=== PATIENT | female | born 1970 | race American Indian/Alaskan Native ===

== ENCOUNTER 2016-11-06 16:13 | Emergency (ER) | payer OTHER ==
--- NOTE | 2016-11-06 21:16 | Emergency Department Report ---
ED Extremity Problem HPI - General Chief complaint: Extremity Injury, Lower Stated complaint: SWOLLEN LEFT LEG Time Seen by Provider: 11/06/16 21:01 Source: patient, family Mode of arrival: Ambulatory Limitations: No Limitations - History of Present Illness Initial comments: Patient complaining of left leg swelling. She states that she fell while she was visiting [place] on vacation 2 weeks ago and she injured her leg. She states she did not seek any medical treatment now she is complaining of pain from her left upper leg to her ankle. Reports swelling and bruising to left leg also. Pain is 4 out of 10 with walking and it feels sore and achy denies any history of taking hormones, history of blood clot or any family history of blood clots. Denies any recent surgery. Denies any shortness of breath or chest pain. Denies any clotting disorder. Denies taking control pill. She only risk factor is that she traveled to 10 hour airplane and fall with injury. MD Complaint: extremity pain, extremity swelling, joint swelling, joint paint Onset/Timin -: week(s) Location: left, lower extremity -: No myalgia, Yes arthralgia, No fever, No associated dyspnea, No associated chest pain Radiation: none Severity scale (0 -10): 4 Quality: aching, other (sore) Consistency: intermittent Improves with: immobilization Worsens with: weight bearing, walking, exertion Associated Symptoms: arthralgias. denies: chest pain, shortness of breath, fever, myalgias, rash - Related Data Previous Rx's Medication Instructions Recorded Last Taken Type Methocarbamol [Robaxin] 750 mg PO Q8H PRN #21 tablet 12/08/13 Unknown Rx Oxycodone HCl/Acetaminophen 1 each PO Q6HR PRN #20 tablet 12/08/13 Unknown Rx [Percocet 10-325 mg] Ibuprofen [Motrin 800 MG tab] 800 mg PO Q8H PRN #15 tablet 11/07/16 Unknown Rx Allergies Allergy/AdvReac Type Severity Reaction Status Date / Time No Known Allergies Allergy Unverified 12/08/13 10:49 ED Review of Systems ROS: Stated complaint: SWOLLEN LEFT LEG Other details as noted in HPI Comment: All other systems reviewed and negative Constitutional: denies: chills, fever Eyes: denies: vision change ENT: denies: throat pain, congestion Respiratory: no symptoms reported Cardiovascular: edema. denies: chest pain, palpitations, dyspnea on exertion, syncope Gastrointestinal: denies: abdominal pain, nausea, vomiting Musculoskeletal: joint swelling, arthralgia. denies: back pain, myalgia Skin: denies: rash Neurological: denies: headache, weakness, numbness, paresthesias, confusion, abnormal gait, vertigo ED Past Medical Hx - Past Medical History Previous Medical History?: Yes Hx Hypertension: Yes - Surgical History Past Surgical History?: Yes Additional Surgical History: breast reduction, eye surgery -corneal transplant, partial hysterectomy - Family History Family history: no significant - Social History Smoking Status: Never Smoker Substance Use Type: Alcohol, Prescribed - Medications Home Medications: Home Medications Medication Instructions Recorded Confirmed Last Taken Type Methocarbamol [Robaxin] 750 mg PO Q8H PRN #21 tablet 12/08/13 Unknown Rx Oxycodone HCl/Acetaminophen 1 each PO Q6HR PRN #20 tablet 12/08/13 Unknown Rx [Percocet 10-325 mg] Ibuprofen [Motrin 800 MG tab] 800 mg PO Q8H PRN #15 tablet 11/07/16 Unknown Rx ED Physical Exam - General Limitations: No Limitations General appearance: alert, in no apparent distress - Head Head exam: Present: atraumatic, normocephalic, normal inspection - Eye Eye exam: Present: normal appearance, PERRL, EOMI Pupils: Present: normal accommodation - ENT ENT exam: Present: normal exam, normal orophraynx, mucous membranes moist, TM's normal bilaterally, normal external ear exam - Neck Neck exam: Present: normal inspection, full ROM. Absent: tenderness, meningismus, lymphadenopathy - Respiratory Respiratory exam: Present: normal lung sounds bilaterally. Absent: respiratory distress, chest wall tenderness - Cardiovascular Cardiovascular Exam: Present: regular rate, normal rhythm, normal heart sounds - Extremities Exam Extremities exam: Present: full ROM, tenderness (anteriorly), normal capillary refill, joint swelling. Absent: pedal edema, calf tenderness - Expanded Lower Extremity Exam Left Hip exam: Present: normal inspection, full ROM, pelvic stability. Absent: tenderness, swelling, abrasion, laceration, ecchymosis, deformity, crepidus, dislocation, erythema, external rotation, internal rotation, shortening Upper Leg exam: Present: normal inspection, full ROM. Absent: tenderness, swelling, abrasion, laceration, ecchymosis, deformity, crepidus, dislocation, erythema Knee exam: Present: normal inspection, full ROM, full knee extension. Absent: tenderness, swelling, abrasion, laceration, ecchymosis, deformity, crepidus, dislocation, erythema, effusion, pain w/ pronation/supination, posterior draw sign, pain/laxity with valgus, pain/laxity with varus Lower Leg exam: Present: full ROM, tenderness, swelling, ecchymosis. Absent: normal inspection, abrasion, laceration, deformity, crepidus, dislocation, erythema, palpable cord, Genna's sign Ankle exam: Present: full ROM, swelling. Absent: normal inspection, tenderness , abrasion, laceration, ecchymosis, deformity, crepidus, dislocation, erythema Foot/Toe exam: Present: normal inspection, full ROM. Absent: tenderness, swelling, abrasion, laceration, ecchymosis, deformity, crepidus, dislocation, erythema, amputation, puncture wound, foreign body, calcaneal tenderness, tenderness at base of 5th metatarsal, nail avulsion, subungual hematoma Neuro vascular tendon exam: Present: no vascular compromise. Absent: pulse deficit, abnormal cap refill, motor deficit, sensory deficit, tendon deficit, extremity cold to touch, pallor, abnormal 2-point discrimination, decreased fine /light touch, foot drop, peroneal nerve deficit, significant pain with passive ROM of distal joint Gait: Positive: observed and limited by pain - Back Exam Back exam: Present: normal inspection, full ROM - Neurological Exam Neurological exam: Present: alert, oriented X3, normal gait, reflexes normal. Absent: motor sensory deficit - Psychiatric Psychiatric exam: Present: normal affect, normal mood - Skin Skin exam: Present: warm, dry, intact, ecchymosis (left lower extremity leg.) ED Course Vital Signs 11/06/16 16:58 Temperature 98.2 F Pulse Rate 72 Respiratory 20 Rate Blood Pressure 145/88 O2 Sat by Pulse 99 Oximetry - Reevaluation(s) Reevaluation #1: 11/06/16 23:51 Patient given Lovenox 130 mg based on weight prophylaxis for DVT and will be coming back in the morning for left lower extremity Doppler ultrasound to rule out DVT. Percocet 5/325 2 tablets by mouth ED Medical Decision Making - Lab Data Result diagrams: 11/06/16 21:39 11/06/16 21:39 Labs 11/06/16 11/06/16 11/06/16 21:39 21:39 21:39 WBC 11.2 H RBC 4.34 Hgb 12.8 Hct 38.8 MCV 90 MCH 30 MCHC 33 RDW 14.1 Plt Count 332 Lymph % (Auto) 34.7 [place] % (Auto) 5.7 Eos % (Auto) 1.8 Baso % (Auto) 0.4 Lymph # 3.9 [place] # 0.6 Eos # 0.2 Baso # 0.0 Seg Neutrophils % 57.4 Seg Neutrophils # 6.5 PT 13.3 INR 1.02 APTT 31.0 Sodium 141 Potassium 4.0 Chloride 101.6 Carbon Dioxide 26 Anion Gap 17 BUN 12 Creatinine 0.6 L Estimated GFR > 60 BUN/Creatinine Ratio 20.00 Glucose 91 Calcium 9.2 HCG, Qual 11/06/16 21:39 WBC RBC Hgb Hct MCV MCH MCHC RDW Plt Count Lymph % (Auto) [place] % (Auto) Eos % (Auto) Baso % (Auto) Lymph # [place] # Eos # Baso # Seg Neutrophils % Seg Neutrophils # PT INR APTT Sodium Potassium Chloride Carbon Dioxide Anion Gap BUN Creatinine Estimated GFR BUN/Creatinine Ratio Glucose Calcium HCG, Qual Negative - Radiology Data Radiology results: report reviewed X-ray of left hip revealed apparent swelling of the left calf and leg area. Suspect underlying large body habitus. Ventral calcaneal spurring. Moderate degenerative changes of the knee. No definitive evidence of acute fracture seen at this time. X-ray of the ankle reveals no acute abnormality with exception of ketones. This is subacute. - Medical Decision Making ED course: The left lower extremity swelling from proximal leg to Distal leg going into her ankle. She does complain the pain and says she fell 2 weeks ago while she was on vacation and did not seek medical attention. She had 10 hour flight and now she presents to the emergency room complaining of swelling and bruising to her left leg and ankle with pain. I discussed case with Dr. Sanders patient presentation, clinical findings, lab results and x-ray results. It was agreed upon that patient should be given Lovenox based on her weight times one dose subcutaneous and she is to return in the morning Doppler ultrasound left lower extremity. X-ray results, lab results and treatment plan explained to patient and she is in agreement. Patient given Lovenox 130 mg subcutaneous and Percocet 5/325 2 tablets in the emergency room. She is discharged home with her family to return in the morning and at 9 AM for Doppler ultrasound of left lower extremity. Patient discharged home with prescription for Motrin. Patient does not have any shortness of breath. Negative Homans sign. No LT calf tenderness with palpation. No redness noted to Lt calf. Critical care attestation.: If time is entered above; I have spent that time in minutes in the direct care of this critically ill patient, excluding procedure time. ED Disposition Clinical Impression: Swelling of left lower extremity, Fall from ground level, Arthralgia of left lower leg Contusion of left leg Qualifiers: Encounter type: initial encounter Qualified Code(s): S80.12XA - Contusion of left lower leg, initial encounter Disposition: DC- TO HOME OR SELFCARE Is pt being admited?: No Does the pt Need Aspirin: No Condition: Stable Instructions: Arthralgia (ED), Contusion in Adults (ED), Leg Edema (ED) Additional Instructions: return to outpatient vascular lab at 9 AM in the morning for venous Doppler study left lower extremity Please take Motrin as prescribed for pain. If he develops chest pain, and shortness of breath. Return to the emergency room SIL[facility]. Prescriptions: Ibuprofen [Motrin 800 MG tab] 800 mg PO Q8H PRN #15 tablet PRN Reason: Pain Referrals: PRIMARY CAREMD [Primary Care Provider] - 11/08/16 Forms: Work/School Release Form(ED)
[2016-11-06 21:49] LABS: Basophils % (Auto) 0.4 % (0.0-1.8); Eosinophils % (Auto) 1.8 % (0.0-4.3); Hematocrit 38.8 % (30.3-42.9); Hemoglobin 12.8 gm/dl (10.1-14.3); Mean Corpuscular HGB Conc 33 % (30-34); Mean Corpuscular Hemoglobin 30 pg (28-32); Mean Corpuscular Volume 90 fl (79-97); Platelet Count 332 K/mm3 (140-440); Red Blood Count 4.34 M/mm3 (3.65-5.03); Red Cell Distribution Width 14.1 % (13.2-15.2); White Blood Count 11.2 K/mm3 (4.5-11.0)
[2016-11-06 21:59] LABS: INR 1.02 (0.87-1.13)
[2016-11-06 22:08] LABS: Anion Gap 17 mmol/L; Blood Urea Nitrogen 12 mg/dL (7-17); Calcium 9.2 mg/dL (8.4-10.2); Carbon Dioxide 26 mmol/L (22-30); Chloride 101.6 mmol/L (98-107); Glucose 91 mg/dL (65-100); Sodium 141 mmol/L (137-145)
--- NOTE | 2016-11-06 23:06 | XRay Report ---
FINAL REPORT PROCEDURE: XR TIBIA FIBULA 2V LT TECHNIQUE: Four views left tibia-fibula HISTORY: fall with left leg swelling and bruising COMPARISON: No prior studies are available for comparison. FINDINGS: Apparent swelling of the left calf and leg area. Suspect underlying large body habitus. Ventral calcaneal spurring. Moderate degenerative changes of the knee. No definitive evidence of acute fracture seen at this time. IMPRESSION: Swelling without fracture.
--- NOTE | 2016-11-06 23:19 | XRay Report ---
FINAL REPORT EXAM: XR ANKLE 3 LT HISTORY: fall with pain/swelling, lt ankle pain TECHNIQUE: Three views left ankle PRIORS: None. FINDINGS: No fracture is identified. No dislocation seen. Ankle mortise is intact no evidence of joint space widening. No erosive or degenerative changes are identified. No evidence of joint effusion. Plantar calcaneal enthesophyte noted. IMPRESSION: Heel spur No acute abnormality identified
[2016-11-06] MEDS ORDERED: LOVENOX SUB-Q ONE ×2 (23:43→23:50)
[2016-11-06] MEDS ORDERED: NORCO 5/325 PO ONE (23:48)
[2016-11-07 00:28] VITALS: BP 149/71
== END 2016-11-07 00:15 | disposition home or self-care (01) ==
LOC: ED 16:13
DX: M79.662 Pain in left lower leg (principal); M79.89 Other specified soft tissue disorders; I10 Essential (primary) hypertension; W18.30XA Fall on same level, unspecified, initial encounter; Y93.89 Activity, other specified; Y92.89 Other specified places as the place of occurrence of the external cause; Y99.8 Other external cause status; Z98.890 Other specified postprocedural states
CPT/HCPCS: 36415; 73590; 73610; 80048; 84703; 85025; 85610; 85730; 96372; 99284; J1650

== ENCOUNTER 2016-11-07 08:27 | Outpatient (CLI) | payer OTHER | END 2016-11-07 08:28 | disposition home or self-care (01) | LOC: VAS 08:27 | PROVIDERS: ATTEND Nurse Practitioner Family | DX: M79.89 Other specified soft tissue disorders (principal); M79.605 Pain in left leg; I10 Essential (primary) hypertension ==